=== PATIENT | female | born 2000 | race Caucasian/White ===

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

== ENCOUNTER → 2023-03-15 | Outpatient (CLI) | payer OTHER ==
--- NOTE | 2023-03-15 15:59 | US ---
EXAMINATION TYPE: US abdomen complete DATE OF EXAM: 03/15/2023 COMPARISON: NONE CLINICAL INDICATION: Female, 22 years old with history of R14.0 ABDOMINAL DISTENSION (GASEOUS); pain and nausea TECHNIQUE: Multiple sonographic images of the abdomen are obtained. FINDINGS: EXAM MEASUREMENTS: Liver Length: 13.4 cm Gallbladder Wall: .3 cm CBD: .4 cm Spleen: 11.6 cm Right Kidney: 9.2 x 3.4 x 4.4 cm Left Kidney: 10.4 x 4.3 x 3.6 cm [employer] NOTES: Pancreas: wnl Liver: wnl Gallbladder: wnl Evidence for sonographic Sanchez's sign: No CBD: wnl Spleen: wnl Right Kidney: wnl Left Kidney: wnl Upper IVC: wnl Abd Aorta: wnl IMPRESSION: 1. Unremarkable abdomen ultrasound.
== END | disposition home or self-care (01) ==
LOC: RADUSWWP 09:46
PROVIDERS: ATTEND Internal Medicine Gastroenterology
DX: Z13.220 Encounter for screening for lipoid disorders (principal); Z13.1 Encounter for screening for diabetes mellitus; Z13.0 Encounter for screening for diseases of the blood and blood-forming organs and certain disorders involving the immune mechanism; Z13.29 Encounter for screening for other suspected endocrine disorder; E55.9 Vitamin D deficiency, unspecified; K52.9 Noninfective gastroenteritis and colitis, unspecified; R14.0 Abdominal distension (gaseous)
CPT/HCPCS: 76700

== ENCOUNTER → 2023-03-15 | Outpatient (CLI) | payer OTHER ==
[2023-03-15 16:04] LABS: ALT 16 U/L (8-44); AST 21 U/L (13-35); Albumin/Globulin Ratio 1.92 Ratio (1.60-3.17); Alkaline Phosphatase 72 U/L (41-126); Blood Urea Nitrogen 6.4 mg/dL (9.0-27.0); C Reactive Protein <0.30 mg/dL (0.00-0.80); Calcium 9.7 mg/dL (8.7-10.3); Carbon Dioxide 21.5 mmol/L (21.6-31.8); Chloride 102 mmol/L (96-109); Chol/HDL Ratio 3.54 Ratio; Globulin 2.6 d/dL (1.6-3.3); Glucose 76 mg/dL (70-110); LDL Cholesterol,Calculated 60.4 mg/dL (0.0-131.0); Potassium 3.8 mmol/L (3.5-5.5); Sodium 140 mmol/L (135-145); Total Bilirubin 0.3 mg/dL (0.3-1.2); Total Protein 7.6 d/dL (6.2-8.2)
[2023-03-15 17:04] LABS: Basophils # (A) 0.03 X 10*3/uL (0.00-0.10); Basophils % (A) 0.6 %; Eosinophils # (A) 0.03 X 10*3/uL (0.04-0.35); Eosinophils % (A) 0.6 %; HCT 41.8 % (37.2-46.3); HGB 13.1 d/dL (12.0-15.0); Lymphocytes # (A) 1.73 X 10*3/uL (0.90-5.00); Lymphocytes % (A) 32.5 %; MCH 27.6 pg (27.0-32.0); MCHC 31.3 d/dL (32.0-37.0); Mean Platelet Volume 11.3 FL (9.5-12.2); Monocytes % (A) 11.3 %; NRBC Per 100 WBC 0 X 10*3/uL (0.00-0.01); Neutrophils # (A) 2.92 X 10*3/uL (1.80-7.70); Neutrophils % (A) 54.8 %; Platelet Count 242 X 10*3/uL (140-440); RBC 4.75 X 10*6/uL (4.10-5.20); RDW 13.3 % (11.5-14.5); WBC 5.32 X 10*3/uL (4.50-10.00)
[2023-03-15 22:13] LABS: Gliadin AB IgA, Deaminated Negative (Negative); Gliadin AB IgA, Unit <0.5 U/mL; Gliadin AB IgG, Deaminated Negative (Negative); Gliadin AB IgG, Unit <0.4 U/mL
[2023-03-16 01:02] LABS: Erythrocyte Sedimentation Rate 11 mm/Hr (0-20)
== END | disposition home or self-care (01) ==
LOC: LABWHC1 10:14
PROVIDERS: ATTEND Nurse Practitioner Family
DX: Z13.0 Encounter for screening for diseases of the blood and blood-forming organs and certain disorders involving the immune mechanism (principal); Z13.1 Encounter for screening for diabetes mellitus; Z13.29 Encounter for screening for other suspected endocrine disorder; Z13.220 Encounter for screening for lipoid disorders; E55.9 Vitamin D deficiency, unspecified; K52.9 Noninfective gastroenteritis and colitis, unspecified
CPT/HCPCS: 36415; 80053; 80061; 82306; 83036; 83516; 84443; 85025; 85652; 86140

== ENCOUNTER → 2023-04-18 | Day surgery (SDC) | payer OTHER ==
[2023-04-13 12:12] VITALS: BMI 21.3
[~2023-04-18] MED LIST: LACTATED RINGERS 1,000 ML IV SCH; LIDOCAINE 1% (10MG/ML) FOR IV START INTRADERMA PRN; LIDOCAINE 2% INJ 20 MG/ML (2 ML VIAL) ONE; PROPOFOL 10 MG/ML 20 ML VIAL IV ONE
[2023-04-18 10:40] VITALS: RESP 16; TEMP 98
--- NOTE | 2023-04-18 11:29 | P.PCN ---
Date of Procedure: 04/18/23 Procedure(s) Performed: BRIEF HISTORY: Patient is a 22-year-old, pleasant, white female scheduled for an upper endoscopy as a part of evaluation of epigastric pain associated with nausea and heartburn for the last 1 year duration. On omeprazole 20 mg daily with some help.. PROCEDURE PERFORMED: Esophagogastroduodenoscopy with biopsy. PREOPERATIVE DIAGNOSIS: Chronic abdominal pain, abdominal bloating, nausea and heartburn 1 year duration. IV sedation per anesthesia. PROCEDURE: After informed consent was obtained, the patient was brought into the endoscopy unit. IV sedation was administered by Anesthesia under continuous monitoring. Initially the Olympus GIF-140 video endoscope was inserted into the mouth. Esophagus intubated without any difficulty. It was gradually advanced into the stomach and duodenum and carefully examined. The bulb and the second part of the duodenum appeared normal. as his were done from the duodenum to rule out celiac disease. The scope at this time was withdrawn to the stomach, adequately insufflated with air, and upon careful examination, mucosa of the antrum, had minimal patchy areas of erythema which was biopsied. Small gastric polyps noted noted in the gastric body that the biopsy. Rest of the body, cardia and the fundus appeared normal. The scope was then withdrawn into the esophagus. The GE junction was located at 39 cm from the incisors. The esophagus appeared normal. There were no erosions or ulcerations seen, biopsies were done from the distal esophagus and the patient tolerated the procedure well. IMPRESSION: 1. Minimal antral gastritis and small gastric polyps. 2. No evidence of esophagitis or peptic ulcer RECOMMENDATIONS: The findings of this examination were discussed with the patient as well as a family. She was advised to follow with the biopsy results.. He'll continue with omeprazole 20 mg daily and follow antireflux m easures. She'll be seen in office in 2-3 weeks.
[2023-04-18 12:04] VITALS: BP 110/69; PULSE 74
== END ==
LOC: ORWHC2ENDO 09:40
PROVIDERS: ATTEND Internal Medicine Gastroenterology
DX: K29.50 Unspecified chronic gastritis without bleeding (principal); K31.7 Polyp of stomach and duodenum; G89.29 Other chronic pain; D72.820 Lymphocytosis (symptomatic); Z79.82 Long term (current) use of aspirin; Z88.0 Allergy status to penicillin; Z79.899 Other long term (current) drug therapy
CPT/HCPCS: 81025; 88305; 43239; J2704; J2001

== ENCOUNTER → 2023-07-03 | Outpatient (CLI) | payer OTHER ==
[2023-07-03 21:50] LABS: ALT 12 U/L (8-44); AST 19 U/L (13-35); Albumin 4.8 d/dL (3.8-4.9); Albumin/Globulin Ratio 1.85 Ratio (1.60-3.17); Alkaline Phosphatase 65 U/L (41-126); BUN/Creat Ratio 10.29 Ratio (12.00-20.00); Blood Urea Nitrogen 7.2 mg/dL (9.0-27.0); Calcium 9.3 mg/dL (8.7-10.3); Carbon Dioxide 22.8 mmol/L (21.6-31.8); Chloride 106 mmol/L (96-109); Globulin 2.6 d/dL (1.6-3.3); Glucose 71 mg/dL (70-110); Sodium 142 mmol/L (135-145); Total Bilirubin <0.2 mg/dL (0.3-1.2); Total Protein 7.4 d/dL (6.2-8.2)
[2023-07-03 22:31] LABS: Basophils # (A) 0.06 X 10*3/uL (0.00-0.10); Eosinophils # (A) 0.06 X 10*3/uL (0.04-0.35); HCT 42.2 % (37.2-46.3); HGB 13.5 d/dL (12.0-15.0); Lymphocytes # (A) 2.42 X 10*3/uL (0.90-5.00); Lymphocytes % (A) 41.1 %; MCH 29.2 pg (27.0-32.0); MCV 91.1 FL (80.0-97.0); Mean Platelet Volume 11.1 FL (9.5-12.2); Monocytes % (A) 11.9 %; NRBC Per 100 WBC 0 X 10*3/uL (0.00-0.01); Neutrophils # (A) 2.63 X 10*3/uL (1.80-7.70); Neutrophils % (A) 44.7 %; Platelet Count 279 X 10*3/uL (140-440); RBC 4.63 X 10*6/uL (4.10-5.20); RDW 13.8 % (11.5-14.5); WBC 5.89 X 10*3/uL (4.50-10.00)
== END | disposition home or self-care (01) ==
LOC: LABWHC1 13:06
PROVIDERS: ATTEND Student in an Organized Health Care Education/Training Program
DX: D64.9 Anemia, unspecified (principal)
CPT/HCPCS: 36415; 80053; 82306; 84443; 85025

== ENCOUNTER → 2024-10-25 | Outpatient (CLI) | payer OTHER ==
--- NOTE | 2024-10-25 11:54 | CT ---
EXAMINATION TYPE: CT abdomen pelvis w con DATE OF EXAM: 10/25/2024 HISTORY: C/O Back pain after eating and severe abdominal pain. CT DLP: 329.50mGycm Automated Exposure Control for Dose Reduction was Utilized. CONTRAST: CT scan of the abdomen and pelvis is performed with oral and with IV Contrast, patient injected with 100 ml mL of Isovue 300. COMPARISON: None. FINDINGS: LUNG BASES: No significant abnormality is appreciated. LIVER/GB: No significant abnormality is appreciated. PANCREAS: No significant abnormality is seen. SPLEEN: No significant abnormality is seen. ADRENALS: No significant abnormality is seen. KIDNEYS: No significant abnormality is seen. BOWEL: Oral contrast reaches level of the distal left colon. Patient has little internal fat making e valuation suboptimal. No abnormal small or large bowel dilatation. UTERUS/ADNEXA: Retroflexed uterus. Small amount of free fluid posterior to the uterus. LYMPH NODES: No greater than 1cm abdominal or pelvic lymph nodes are appreciated. OSSEOUS STRUCTURES: No significant abnormality is seen. OTHER: No significant additional abnormality is seen. IMPRESSION: No significant acute finding is seen to account for patient's clinical symptoms. [facility], , 10/25/2024 11:52 AM
== END | disposition home or self-care (01) ==
LOC: RADCTMAIN 09:40
PROVIDERS: ATTEND Family Medicine
DX: R10.9 Unspecified abdominal pain (principal)
CPT/HCPCS: 74177; Q9967